=== PATIENT | male | born 1935 | race Caucasian/White ===

== ENCOUNTER 2017-09-01 11:38 | Emergency (ER) | payer MEDICARE, OTHER ==
[~2017-09-01] VITALS: Ht 182.9 cm; Wt 83.8 kg
[~2017-09-01 11:38] MED LIST: ADVAIR DISK1 INH; ASPIRIN LOW DOS81 M2 PO; BENZONATATE200 MG PO; CLARITIN10 M1 PO; DETROL LA4 MG PO; DOXYCYC MONO100 M1 PO; DOXYCYCL HYC100 MG PO; FIBER CON625 MG PO; FISH OIL1000 MG PO; FLEXERIL5 MG PO; FLONASE NASAL50 MCG; GABAPENTIN100 MG PO; GLUCOSAMINE500 M4; HYDROCHLOROT25 MG PO; LEVAQUIN750 MG PO; Levaquin PO; MECLIZINE12.5 M1 PO; MUCINEX600 MG PO; MULTIVITAMIN PO; PRAVASTATIN SOD20 MG PO; PREDNISONE20 MG PO; PRILOSEC20 MG/CAP PO; RAPAFLO8 MG PO; SINGULAIR PO; TESSALON PER100 MG PO; TYLENOL 500MG TAB PO; ZITHROMAX250 MG PO; [UNRECOGNIZED DRUG - OTHER] PO
[2017-09-01 13:20] LABS: HEMATOCRIT 34.8 % (39.0-50.0); HEMOGLOBIN 11.8 g/dl (14.0-18.0); IMMATURE GRANULOCYTES 4.1 % (0.0-1.0); MEAN CELL VOLUME 95.3 fL CALC (80.0-100.0); MEAN CORPUSCULAR HGB 32.3 pG CALC (26.0-32.0); MEAN CORPUSCULAR HGB CONC 33.9 g/L CALC (32.0-36.0); NEUT# 16.35 thou/uL (1.82-7.42); RED BLOOD COUNT 3.65 mill/uL (4.70-6.10); RED CELL DISTRI WIDTH 13.2 % (11.5-15.5)
[2017-09-01 13:29] LABS: ALBUMIN 4.2 g/dL (3.2-5.0); ALKALINE PHOSPHATASE 165 u/l (38-126); ANION GAP 16 (6-22 (CALC)); BILIRUBIN, TOTAL 0.4 mg/dL (0.0-1.4); BUN 17 mg/dL (8-23); BUN/CREATININE RATIO 22 (12-20 (CALC)); CALCIUM 9.7 mg/dL (8.4-10.2); CARBON DIOXIDE 23 mmol/l (22-30); CHLORIDE 100 mmol/l (95-108); CREATININE 0.8 mg/dL (0.7-1.3); GFR > 60 ML/MIN (>=60 (CALC)); GFR FOR AFR.AMER. > 60 ML/MIN (>=60 (CALC)); GLUCOSE 91 mg/dL (82-115); POTASSIUM 4.5 mmol/l (3.5-5.1); SGOT/AST 32 u/l (19-48); SGPT/ALT 38 u/l (11-66); SODIUM 135 mmol/l (137-146); TOTAL PROTEIN 7.8 g/dL (6.3-8.2)
[2017-09-01 13:37] LABS: MYOGLOBIN 57 ng/mL (0 - 121)
[2017-09-01 14:56] LABS: URINE BILIRUBIN - DIPSTICK NEGATIVE (NEGATIVE); URINE BLOOD DIPSTICK NEGATIVE (NEGATIVE); URINE COLOR YELLOW; URINE GLUCOSE - DIPSTICK NEGATIVE (NEGATIVE); URINE KETONE NEGATIVE (NEGATIVE); URINE LEUK ESTERASE NEGATIVE (NEGATIVE); URINE NITRITE - DIPSTICK NEGATIVE (Negative); URINE PROTEIN - DIPSTICK NEGATIVE (NEG-TRACE); URINE SPECIFIC GRAVITY <=1.005; URINE UROBILINOGEN - DIPSTICK 0.2 E.U./dL (0.2)
[2017-09-01 14:58] LABS: URINE CLARITY CLEAR
[2017-09-01 16:09] VITALS: BP 119/68
== END 2017-09-01 16:09 | disposition home or self-care (01) ==
LOC: ED 11:38
PROVIDERS: Emergency Medicine
DX: R10.9 Unspecified abdominal pain (principal); D72.829 Elevated white blood cell count, unspecified; C83.00 Small cell B-cell lymphoma, unspecified site; Z79.899 Other long term (current) drug therapy

== ENCOUNTER 2019-07-23 09:51 | Observation (INO) | payer MEDICARE, OTHER ==
[~2019-07-23] VITALS: Ht 185.4 cm; Wt 84.6 kg
--- NOTE | 2019-07-23 09:51 | NUR ---
PT AMBULATED TO ROOM ,DECLINED WC, STATES LT SIDED CP RESOLVED AT THIS TIME
--- NOTE | 2019-07-23 10:00 | NUR ---
PT DENIES ANY CP AT THIS TIME; DR SYED AT BEDSIDE FOR ASSESSMENT; EKG COMPLETED; IV INITIATED AND LABS DRAWN; AT BEDSIDE; VSS; MONITORING DEVICES APPLIED; WILL CONTINUE TO MONITOR
[2019-07-23] MEDS ORDERED: COMBIVENT RESPIMAT IN (10:16)
[2019-07-23] MEDS ORDERED: TESSALON PER100 MG PO (10:16)
[2019-07-23] MEDS ORDERED: SIMILASAN (10:17)
[2019-07-23] MEDS ORDERED: FLOVENT DI50 MCG/BLI (10:17)
[2019-07-23] MEDS ORDERED: ALFUZOSIN HCL E10 MG PO (10:18)
[2019-07-23 10:19] LABS: HEMATOCRIT 36.2 % (39.0-50.0); HEMOGLOBIN 12.4 g/dl (14.0-18.0); IMMATURE GRANULOCYTES 0.8 % (0.0-5.0); MEAN CELL VOLUME 91.2 fL CALC (80.0-100.0); MEAN CORPUSCULAR HGB 31.2 pG CALC (26.0-32.0); MEAN CORPUSCULAR HGB CONC 34.3 g/L CALC (32.0-36.0); NEUT# 4.66 thou/uL (1.82-7.42); RED BLOOD COUNT 3.97 mill/uL (4.70-6.10); RED CELL DISTRI WIDTH 11.9 % (11.5-15.5)
[2019-07-23] MEDS ORDERED: OMEPRAZOLE DR40 MG PO (10:19)
[2019-07-23] MEDS ORDERED: COQ10100 MG PO (10:19)
[2019-07-23 10:24] LABS: ANION GAP 15 (6-22 (CALC)); BUN 16 mg/dL (8-23); BUN/CREATININE RATIO 23 (12-20 (CALC)); CARBON DIOXIDE 24 mmol/l (22-30); CHLORIDE 98 mmol/l (95-108); CREATININE 0.7 mg/dL (0.7-1.3); GFR > 60 ML/MIN (>=60 (CALC)); GFR FOR AFR.AMER. > 60 ML/MIN (>=60 (CALC)); POTASSIUM 4.4 mmol/l (3.5-5.1); SODIUM 133 mmol/l (137-146)
--- NOTE | 2019-07-23 10:55 | NUR ---
PT RESTING ON STRETCHER; NO S/S OF DISTRESS NOTED; PT DENIES ANY CP, DIZZINESS OR PAIN; MONITORING DEVICES IN PLACE; SPOUSE AT BEDSIDE; CALL LIGHT WITHIN REACH; WILL CONTINUE TO MONITOR
--- NOTE | 2019-07-23 11:50 | NUR ---
PT ASSISTED TO BR AT THIS TIME; AMB WITH STEADY GAIT; VSS; WILL CONTINUE TO MONITOR
--- NOTE | 2019-07-23 12:33 | NUR ---
REPORT CALLED TO ENEIDA REBOLLEDO
--- NOTE | 2019-07-23 12:36 | NUR ---
PT ARRIVED TO MED/SURG ROOM 281 IN STABLE CONDITION VIA WHEELCHAIR ACCOMPANIED BY LENNIE QUINONES AND SPOUSE;PT AMBULATED WITH A STEADY GAIT TO STANDING SCALE AND BEDSIDE;WT AND VS OBTAINED BY ANDER BOUDREAUX;PT A&O X3,ORIENTED TO ROOM AND CALL LIGHT SYSTEM;PT REPORTS X2 EPISODES OF CHEST PRESSURE ACCOMPANIED BY DIZZINESS YESTERDAY 07/22/19 AND THIS MORNING 07/23/19;PT DENIES ANY CURRENT PAIN OR DISCOMFORTS,PAIN SCALE AND REPORTING EDUCATED;ASSESSMENT COMPLETED;RESPIRATIONS EVEN AND UNLABORED ON RA,CLEAR LUNG SOUNDS;ABDOMEN SOFT ON PALPATION AND ACTIVE IN ALL 4 QUADRANTS,LAST BM 07/22/19;STRONG PEDAL PULSES;SKIN INTACT;TELE MONITORING IN PLACE;#20G TO LAC FLUSHED AND PATENT,SITE APPEARS HEALTHY;PT DENIES ANY ADDITIONAL NEEDS AND IS ENCOURAGED TO CALL FOR ASSISTANCE IF NEEDED;FALL PRECAUTIONS IN PLACE WITH BED IN THE LOWEST POSITION AND CALL LIGHT IN REACH;WILL CONTINUE TO MONITOR
--- NOTE | 2019-07-23 12:40 | NUR ---
Admission Note Report Given to: ENEIDA REBOLLEDO Transported by: X Wheelchair Stretcher Transported with: X Nurse Transporter X Patent IV O2 Transmission Builder
[2019-07-23 12:54] VITALS: BP 131/78
[2019-07-23] MEDS ORDERED: LACTAID FAS9000 UNIT PO (13:17)
--- NOTE | 2019-07-23 15:20 | NUR ---
PT RESTING IN SEMI FOWLERS POSITION READING A BOOK;RESPIRATIONS EVEN AND UNLABORED ON RA;PT DENIES ANY CURRENT PAIN OR DISCOMFORTS;TELE MONITORING IN PLACE;PT DENIES ANY CURRENT NEEDS AND IS ENCOURAGED TO CALL FOR ASSISTANCE IF NEEDED;CALL LIGHT IN REACH;WILL CONTINUE TO MONITOR
[2019-07-23 15:31] VITALS: BP 126/79
--- NOTE | 2019-07-24 04:58 | NUR ---
PATIENT ASSISTED TO THE BATHROOM, REMAINS ON A STANDBY ASSIST, ASSISTED BACK IN BED, DENIES PAIN OR DISCOMFORTS CALL LIGHT AT REACH
[2019-07-24 05:05] VITALS: BP 109/70
[2019-07-24 05:20] LABS: CHOLESTEROL HDL RATIO 2.8 (<4.4 (CALC))
--- NOTE | 2019-07-24 08:00 | NUR ---
PT IS SITTING IN THE SIDE OF THE BED. ASSESSMENT DONE. RESPS EVEN AND UNLABORED. PT IS A&O X3. PT DENIES ANY PAIN AT THIS TIME. CALL LIGHT IN REACH.
[2019-07-24 08:07] VITALS: BP 105/71
[2019-07-24 10:38] VITALS: BP 138/82
--- NOTE | 2019-07-24 12:00 | NUR ---
PT IS EATING HIS LUNCH WITH NO S/S OF DISTRESS NOTED. IN ROOM. CALL LIGHT IN REACH.
--- NOTE | 2019-07-24 14:28 | NUR ---
Discharge instructions given. Patient verbalizes understanding of same. Discharged in stable condition via Wheelchair to Home with volunteer. All belongings sent with pt.
== END 2019-07-24 14:26 | disposition home or self-care (01) ==
LOC: ED 09:51 → ED-I 11:05 → ED 11:19 → MS2 11:20
PROVIDERS: Family Medicine; ADMIT Internal Medicine; ATTEND Internal Medicine
DX: I20.0 Unstable angina (principal); R55 Syncope and collapse; G80.9 Cerebral palsy, unspecified; C91.11 Chronic lymphocytic leukemia of B-cell type in remission; Z92.21 Personal history of antineoplastic chemotherapy
CPT/HCPCS: G0378

== ENCOUNTER 2020-09-23 16:31 | Inpatient (IN) | payer MEDICARE, OTHER ==
[~2020-09-23] VITALS: Ht 182.9 cm; Wt 83.1 kg
[~2020-09-23 16:31] MED LIST changes: +ALFUZOSIN HCL E10 MG PO; +ALL DAY10 MG PO; -CLARITIN10 M1 PO; +COMBIVENT RESPIMAT IN; +COQ10100 MG PO; +FLOVENT DI50 MCG/BLI; -GLUCOSAMINE500 M4; +GLUCOSAMINE500 M4 PO; +LACTAID FAS9000 UNIT PO; +OMEPRAZOLE DR40 MG PO; +SIMILASAN; -TYLENOL 500MG TAB PO; +TYLENOL500 MG PO
[2020-09-23 16:50] VITALS: BP 116/72
[2020-09-23 18:44] VITALS: BP 110/70
[2020-09-23] MEDS ORDERED: IBUPROFEN200 MG PO (18:58)
[2020-09-23] MEDS ORDERED: TYLENOL EXTRA STRENG PO (18:59)
[2020-09-23] MEDS ORDERED: ADVAIR DISKU IN (19:01)
[2020-09-24 04:44] VITALS: BP 120/68
[2020-09-24 06:12] LABS: HEMATOCRIT 33.9 % (39.0-50.0); HEMOGLOBIN 11.1 g/dl (14.0-18.0); MEAN CELL VOLUME 90.4 fL CALC (80.0-100.0); MEAN CORPUSCULAR HGB 29.6 pG CALC (26.0-32.0); MEAN CORPUSCULAR HGB CONC 32.7 g/dL CAL (32.0-36.0); RED BLOOD COUNT 3.75 mill/uL (4.70-6.10); RED CELL DISTRI WIDTH 13.5 % (11.5-15.5)
[2020-09-24 06:46] LABS: ALBUMIN 2.8 g/dL (3.2-5.0); ALKALINE PHOSPHATASE 114 u/l (38-126); ANION GAP 10 (6-22 (CALC)); BILIRUBIN, TOTAL 0.7 mg/dL (0.0-1.4); BUN 12 mg/dL (8-23); BUN/CREATININE RATIO 20 (12-20 (CALC)); CARBON DIOXIDE 24 mmol/l (22-30); CHLORIDE 99 mmol/l (95-108); CREATININE 0.6 mg/dL (0.7-1.3); GFR > 60 ML/MIN (>=60 (CALC)); GFR FOR AFR.AMER. > 60 ML/MIN (>=60 (CALC)); MAGNESIUM 1.8 mg/dL (1.6-2.3); POTASSIUM 4.5 mmol/l (3.5-5.1); SGOT/AST 13 u/l (19-48); SODIUM 128 mmol/l (137-146); TOTAL PROTEIN 4.8 g/dL (6.3-8.2)
[2020-09-24 07:23] VITALS: BP 120/72
[2020-09-24] MEDS ORDERED: ALFUZOSIN HCL E10 MG PO (14:28)
[2020-09-24] MEDS ORDERED: [UNRECOGNIZED DRUG - OTHER] PO (14:29)
[2020-09-24] MEDS ORDERED: CO Q 10100 MG PO (14:30)
[2020-09-24] MEDS ORDERED: FLOVENT DI100 MCG/BL PO (14:34)
[2020-09-24 14:55] VITALS: BP 101/52
[2020-09-24 19:10] VITALS: BP 104/71
[2020-09-25 05:16] VITALS: BP 114/66
[2020-09-25 07:12] LABS: HEMATOCRIT 33.5 % (39.0-50.0); HEMOGLOBIN 11.2 g/dl (14.0-18.0); MEAN CELL VOLUME 89.8 fL CALC (80.0-100.0); MEAN CORPUSCULAR HGB CONC 33.4 g/dL CAL (32.0-36.0); RED BLOOD COUNT 3.73 mill/uL (4.70-6.10); RED CELL DISTRI WIDTH 13.6 % (11.5-15.5)
[2020-09-25 07:48] LABS: ANION GAP 12 (6-22 (CALC)); BUN 12 mg/dL (8-23); BUN/CREATININE RATIO 18 (12-20 (CALC)); CARBON DIOXIDE 22 mmol/l (22-30); CHLORIDE 99 mmol/l (95-108); CREATININE 0.7 mg/dL (0.7-1.3); GFR > 60 ML/MIN (>=60 (CALC)); GFR FOR AFR.AMER. > 60 ML/MIN (>=60 (CALC)); MAGNESIUM 1.6 mg/dL (1.6-2.3); POTASSIUM 4.6 mmol/l (3.5-5.1); SODIUM 127 mmol/l (137-146)
[2020-09-25 08:27] VITALS: BP 112/64
[2020-09-25 15:00] VITALS: BP 129/59
[2020-09-25 20:35] VITALS: BP 107/74
[2020-09-26 03:55] VITALS: BP 123/72
[2020-09-26 08:50] VITALS: BP 105/71
[2020-09-26 16:14] VITALS: BP 105/69
[2020-09-26 20:03] VITALS: BP 116/74
[2020-09-27 04:08] VITALS: BP 97/60
[2020-09-27 05:22] LABS: HEMATOCRIT 34.2 % (39.0-50.0); HEMOGLOBIN 11.4 g/dl (14.0-18.0); MEAN CORPUSCULAR HGB CONC 33.3 g/dL CAL (32.0-36.0); NEUT# 14.37 thou/uL (1.82-7.42); RED BLOOD COUNT 3.8 mill/uL (4.70-6.10); RED CELL DISTRI WIDTH 13.6 % (11.5-15.5)
[2020-09-27 05:35] LABS: IMMATURE GRANULOCYTES 9.3 % (0.0-5.0)
[2020-09-27 05:37] LABS: ANION GAP 9 (6-22 (CALC)); BUN 12 mg/dL (8-23); BUN/CREATININE RATIO 17 (12-20 (CALC)); CARBON DIOXIDE 23 mmol/l (22-30); CHLORIDE 100 mmol/l (95-108); CREATININE 0.7 mg/dL (0.7-1.3); GFR > 60 ML/MIN (>=60 (CALC)); GFR FOR AFR.AMER. > 60 ML/MIN (>=60 (CALC)); POTASSIUM 4.1 mmol/l (3.5-5.1); SODIUM 127 mmol/l (137-146)
[2020-09-27 08:42] VITALS: BP 110/81
[2020-09-27] MEDS ORDERED: FLORASTOR250 M1 PO (11:23)
[2020-09-27] MEDS ORDERED: VANTIN200 M1 PO (11:49)
[2020-09-27] MEDS ORDERED: DOXYCYCL HYC100 MG PO (11:49)
== END 2020-09-27 14:07 | disposition home or self-care (01) | DRG 191 ==
LOC: MS2 16:31
PROVIDERS: Nurse Practitioner; ADMIT Internal Medicine; ATTEND Internal Medicine
DX: J47.0 Bronchiectasis with acute lower respiratory infection (principal); E87.1 Hypo-osmolality and hyponatremia; C83.00 Small cell B-cell lymphoma, unspecified site; J18.9 Pneumonia, unspecified organism; J47.1 Bronchiectasis with (acute) exacerbation; R09.02 Hypoxemia; G80.9 Cerebral palsy, unspecified; K21.9 Gastro-esophageal reflux disease without esophagitis; D64.9 Anemia, unspecified; Z87.01 Personal history of pneumonia (recurrent); Z20.822 Contact with and (suspected) exposure to COVID-19
CPT/HCPCS: G0378; G0379; J0692; Q9967

== ENCOUNTER 2024-09-05 09:29 | Observation (INO) | payer MEDICARE ==
[~2024-09-05] VITALS: Ht 182.9 cm; Wt 83.6 kg
[2024-09-05] VITALS (16 sets, daily range): BP systolic 104–142; BP diastolic 51–87
[~2024-09-05 09:29] MED LIST changes: +ADVAIR DISKU IN; +ASPIRIN81 MG PO; +CLARITIN-D1 TA2 PO; +CO Q 10100 MG PO; +EYE DROP3 OP; +FLORASTOR250 M1 PO; +FLOVENT DI100 MCG/BL PO; +IBUPROFEN200 MG PO; +MOXIFLOXACIN H400 MG PO; +SILODOSIN4 MG; +TYLENOL EXTRA STRENG PO; +VANTIN200 M1 PO; +[UNRECOGNIZED DRUG - OTHER] PO
--- NOTE | 2024-09-05 09:42 | NUR ---
PT ARRIVED VIA EMS-REPORT RECEIVED.
[2024-09-05 10:15] LABS: BASO% 0.6 % (0-3); HEMOGLOBIN 11.2 g/dl (14.0-18.0); IMMATURE GRANULOCYTES 0.3 % (0.0-5.0); LYMPH% 5.4 % (15-41); MEAN CELL VOLUME 96.3 fL CALC (80.0-100.0); MEAN CORPUSCULAR HGB 31.7 pG CALC (26.0-32.0); MEAN CORPUSCULAR HGB CONC 32.9 g/dL CAL (32.0-36.0); MONO% 12.6 % (2-13); NEUT# 5.14 thou/uL (1.82-7.42); NEUT% 81.1 % (42-76); RED BLOOD COUNT 3.53 mill/uL (4.70-6.10); RED CELL DISTRI WIDTH 12.8 % (11.5-15.5)
[2024-09-05 10:23] LABS: ALBUMIN 3.9 g/dL (3.2-5.0); BILIRUBIN, TOTAL 0.6 mg/dL (0.2-1.3); CREATININE 0.7 mg/dL (0.7-1.3); POTASSIUM 3.9 mmol/l (3.5-5.1); TOTAL PROTEIN 6.3 g/dL (6.3-8.2)
[2024-09-05] MEDS ORDERED: AZITHROMYCIN 500 MG in SODIUM CHLORIDE 0.9% 500 ML IV ONE (11:20)
[2024-09-05] MEDS ORDERED: cefTRIAXone SODIUM 2 GM in SODIUM CHLORIDE 0.9% 100 ML IV ONE (11:20)
[2024-09-05] MEDS ORDERED: OSELTAMIVIR PHOSPHATE 75 MG/TAB CAP PO ONE (11:20)
[2024-09-05] MEDS ORDERED: MAGNESIUM HYDROXIDE 30 ML UDC PO PRN (11:55)
[2024-09-05] MEDS ORDERED: ACETAMINOPHEN 325 MG/TAB PO PRN (11:55)
[2024-09-05] MEDS ORDERED: ALBUTEROL SULFATE 8 GM INH IN PRN (12:00)
[2024-09-05] MEDS ORDERED: PANTOPRAZOLE SODIUM Sesquihydr 40 MG/TAB PO SCH (14:00)
--- NOTE | 2024-09-05 15:41 | NUR ---
report given to Amy RN ext [phone] for MS Room 269
--- NOTE | 2024-09-05 16:00 | NUR ---
PT ARRIVED TO UNIT VIA WHEELCHAIR TRANSPORT, PT FEELING WEAK AT THIS TIME, STAND. IS AOX3, RESPIRATIONS ARE LABORED WITH ACTIVITY, RONCHI NOTED THROUGHOUT LUNGS, BOWEL SOUNDS ACTIVE, PEDAL PULSES PALPABLE TO TOUCH, RIGHT FOOT/ANKLE WITH 2+ PITTING EDEMA.
--- NOTE | 2024-09-05 20:00 | NUR ---
RECEIVED REPORT FROM DAYSHIFT NURSE. PT NOTED SITTING UP IN BED FOLWERS, RM AIR. PT IS A/OX3, DENIES ANY N/V/P AT THIS TIME. NURSING ASSESSMENT COMPLETED, LUNG SOUNDS RHONCHI THROUGHOUT. IV SITE APPEARS HEALTHY AND INTACT, FLUSHES W/O DIFFICULTY. PT IS VERY WEAK AT THIS TIME AND HAS HAD SOME EPISODES OF INC. PUREWICK WAS RECOMMENDED TO PT WHICH HE AGREED UPON AND WAS APPLIED. EDUCATED PT ON PLAN OF CARE AND MED SCHEDULE. VSS. NO S/S OF DISTRESS. CALL LIGHT WITHIN REACH AND SAFETY PRECAUTIONS IN PLACE.
[2024-09-05] MEDS ORDERED: OSELTAMIVIR PHOSPHATE 75 MG/TAB CAP PO SCH (21:00)
[2024-09-06] VITALS (7 sets, daily range): BP systolic 109–150; BP diastolic 60–83
--- NOTE | 2024-09-06 00:20 | NUR ---
PT HAD TWO EPISODES OF VOMITTING, C/O NAUSEA AND STATING "IM GOING THROUGH A VERTIGO EPISODE" PT STATES HE HAS A HX OF VERTIGO BUT DOES NOT TAKE ANYTHING FOR IT AT HOME. CHARLOTTE CAREY WAS INFORMED OF PT STATUS, TORB FOR ZOFRAN WAS FAXED TO [facility] AWAITING VERIFICATION. PT WAS CLEANED UP AND SITTING UP FOWLERS IN BED. VSS. CALL LIGHT WITHIN REACH AND SAFETY PRECAUTIONS IN PLACE.
[2024-09-06] MEDS ORDERED: ONDANSETRON HCl 4 MG/2 ML SDV IV PRN (00:40)
--- NOTE | 2024-09-06 05:17 | NUR ---
COMBINE OPERATOR WAS OBTAINING PT MORNING VITALS, PT O2 SATURATION AT THE TIME WAS READING 73% ON RM AIR. WHEN COMMUNITY LIVING INSTRUCTOR ENTERED ROOM, AUDIBLE RATTLING/CRACKLING BREATH SOUNDS NOTED. PLACED PT ON NON REBREATHER @15L 02. ADMINSITERED TWO PUFFS OF INHALER PER EMAR AND REPOSITIONED PT TO HIGH FOWLERS POSITION. RT WAS NOTIFIED AND DID COME ASSESS PT. PT DENIED FEELING SOB, WAS A/OX3, AND ABLE TO HOLD CONVERSATION. PT DID EXPRESS FEELING VERY WEAK, DID REQUIRE X2 ASSIST TO REPOSITION IN THE BED.
[2024-09-06] MEDS ORDERED: FUROSEMIDE 40 MG/4 ML SDV IV SCH (06:00)
--- NOTE | 2024-09-06 06:08 | NUR ---
GENETIC SCIENTIST LOBO CAREY WAS INFORMED PT CHANGE IN STATUS. CHEST XRAY COMPLETED AND LASIX WAS ADMINSITERED PER EMAR. PT SITTING UP HIGH FOWLERS IN BED WITH NON REBREATHER ON 15L 02. CALL LIGHT WITHIN REACH AND SAFETY PRECAUTIONS IN PLACE. TELE MONITOR IN PLACE.
[2024-09-06 06:12] LABS: BASO% 0.2 % (0-3); HEMATOCRIT 35.1 % (39.0-50.0); HEMOGLOBIN 11.7 g/dl (14.0-18.0); IMMATURE GRANULOCYTES 0.2 % (0.0-5.0); LYMPH% 2.1 % (15-41); MEAN CELL VOLUME 94.6 fL CALC (80.0-100.0); MEAN CORPUSCULAR HGB 31.5 pG CALC (26.0-32.0); MEAN CORPUSCULAR HGB CONC 33.3 g/dL CAL (32.0-36.0); MONO% 6.1 % (2-13); NEUT# 12.09 thou/uL (1.82-7.42); NEUT% 91.4 % (42-76); RED BLOOD COUNT 3.71 mill/uL (4.70-6.10); RED CELL DISTRI WIDTH 12.6 % (11.5-15.5)
[2024-09-06 06:35] LABS: ALBUMIN 3.4 g/dL (3.2-5.0); BILIRUBIN, TOTAL 0.7 mg/dL (0.2-1.3); CREATININE 0.7 mg/dL (0.7-1.3); MAGNESIUM 1.7 mg/dL (1.6-2.3); POTASSIUM 3.7 mmol/l (3.5-5.1); TOTAL PROTEIN 5.8 g/dL (6.3-8.2)
[2024-09-06] MEDS ORDERED: ASPIRIN 81 MG/TAB PO SCH (09:00)
[2024-09-06] MEDS ORDERED: AZITHROMYCIN 500 MG in SODIUM CHLORIDE 0.9% 250 ML IV SCH (13:00)
--- NOTE | 2024-09-06 17:06 | NUR ---
PT EDUCATED ON ACAPELLA/PEP THERAPY & INCENTIVE SPIROMETRY USE. GREAT EFFORT GIVEN. PT INSTRUCTED TO CONTINUE ON WITH BOTH 10X Q1 WHILE AWAKE.
--- NOTE | 2024-09-06 18:51 | NUR ---
Patient was weaned from Non rebreather on 15L to N/C on 2-3L/ Tolerating well. Up to chair today and tolerated well. X1 low grade fever, administered Tylenol with good effect.
[2024-09-07] VITALS (9 sets, daily range): BP systolic 128–147; BP diastolic 69–82
--- NOTE | 2024-09-07 03:44 | NUR ---
PATIENT ASLEEP IN BED AT THIS TIME. RESPIRATIONS EVEN AND UNLABORED ON OXYGEN @ 3 LPM VIA NC. PATIENT HAS SOME SOB ON EXERTION. NO SIGNS OF DISTRESS NOTED. SAFETY MEASURES IN PLACE.
[2024-09-07 05:32] LABS: BASO% 0.3 % (0-3); EOS% 0.1 % (0-8); HEMATOCRIT 34.7 % (39.0-50.0); HEMOGLOBIN 11.8 g/dl (14.0-18.0); IMMATURE GRANULOCYTES 0.2 % (0.0-5.0); MEAN CELL VOLUME 95.9 fL CALC (80.0-100.0); MEAN CORPUSCULAR HGB 32.6 pG CALC (26.0-32.0); MONO% 10.5 % (2-13); NEUT# 8.01 thou/uL (1.82-7.42); NEUT% 81.9 % (42-76); RED BLOOD COUNT 3.62 mill/uL (4.70-6.10); RED CELL DISTRI WIDTH 12.9 % (11.5-15.5)
[2024-09-07 05:33] LABS: ALBUMIN 3.2 g/dL (3.2-5.0); BILIRUBIN, TOTAL 0.6 mg/dL (0.2-1.3); CREATININE 0.7 mg/dL (0.7-1.3); MAGNESIUM 1.8 mg/dL (1.6-2.3); POTASSIUM 3.5 mmol/l (3.5-5.1); TOTAL PROTEIN 5.5 g/dL (6.3-8.2)
--- NOTE | 2024-09-07 07:38 | NUR ---
PATINET LYING IN BED WITH EYES CLOSED RESTING. BREATHING UNLABORED ON 3L NC. TELE INTACT. IV SL;SITE CLEAN AND INTACT. URINAL AT BEDSIDE. NO SIGNS OF DISTRESS OR PAIN NOTED. BED IN LOWEST POSITION. PERSONAL ITEMS WELL CALL LIGHT WITHIN REACH. NO NEEDS AT THIS TIME. POC ONGOING.
--- NOTE | 2024-09-07 12:47 | NUR ---
PATIENT SITTING UP ON SIDE OF BED EATING LUNCH. BREATHING UNLABORED ON ROOM AIR. TELE INTACT. IV IN LFA INFUSING FLUIDS PER EMAR;SITE CLEAN AND INTACT. PT DENIES ANY PAIN OR N/D/V AT THIS TIME. BED IN LOWEST POSITION. PERSONAL ITEMS WELL CALL LIGHT WITHIN REACH;PT VERBALIZED UNDERSTANDING OF USE. NO OTHER NEEDS AT THIS TIME. POC ONGOING.
--- NOTE | 2024-09-07 16:09 | NUR ---
PATIENT LYING IN BED AWAKE. AT BEDSIDE. BREATHING UNLABORED ON ROOM AIR. TELE INTACT. IV IN LFA SL;SITE CLEAN AND INTACT. PT DENIES ANY PAIN OR N/D/V AT THIS TIME. BED IN LOWEST POSITION. PERSONAL ITEMS WELL CALL LIGHT WITHIN REACH. NO OTHER NEEDS AT THIS TIME.POC ONGOING.
[2024-09-08] VITALS (9 sets, daily range): BP systolic 95–155; BP diastolic 38–93
--- NOTE | 2024-09-08 07:34 | NUR ---
PT IS AOX4, RESPIRATIONS ARE EVEN AND UNLABORED, LUNGS SOUND COURSE AT THE LEFT LOWER LOBE, CLEAR AT THE RIGHT LOWER LOBE, SLIGHTLY COURSE AT LEFT UPPER LOBE, CLEAR AT RIGHT UPPER LOBE, BOWEL SOUNDS ARE ACTIVE, PEDAL PULSES ARE PALPABLE TO TOUCH, PT DENIES PAIN AT THIS TIME.
--- NOTE | 2024-09-08 12:03 | NUR ---
PT'S IV FOUND DISLODGED, NO BLEEDING, NO SWELLING NOTED.
--- NOTE | 2024-09-08 12:30 | NUR ---
ATEMPTED TO REPLACE PT'S IV BUT WAS NOT SUCCESSFUL, MESSAGE SENT TO DUMPER FOR ASSISTANCE.
--- NOTE | 2024-09-08 16:12 | NUR ---
PT SITTING UP IN BED VISITING WITH FAMILY, RESPIRATIONS ARE EVEN AND UNLABORED ON 2L, PT DENIES PAIN AT THIS TIME.
[2024-09-08] MEDS ORDERED: ENOXAPARIN SODIUM 40 MG/0.4 ML SYR SC SCH (21:00)
[2024-09-09 03:50] VITALS: BP 145/76
[2024-09-09 05:09] LABS: HEMATOCRIT 32.1 % (39.0-50.0); MEAN CELL VOLUME 93.9 fL CALC (80.0-100.0); MEAN CORPUSCULAR HGB 32.2 pG CALC (26.0-32.0); MEAN CORPUSCULAR HGB CONC 34.3 g/dL CAL (32.0-36.0); RED BLOOD COUNT 3.42 mill/uL (4.70-6.10); RED CELL DISTRI WIDTH 12.5 % (11.5-15.5)
[2024-09-09 05:27] LABS: ALBUMIN 3.4 g/dL (3.2-5.0); CREATININE 0.6 mg/dL (0.7-1.3); POTASSIUM 3.4 mmol/l (3.5-5.1)
[2024-09-09 05:37] LABS: BILIRUBIN, TOTAL 1.1 mg/dL (0.2-1.3)
--- NOTE | 2024-09-09 07:00 | NUR ---
REPORT RECEIVED FROM ZULY. PT SEEN RESTING IN BED WITHOUT COMPLAINTS. CHEERFUL. LUNGS COARSE ON EXPIRATION. PT DENIES SOB. PO2 95% ON R/A. CALL LIGHT IN REACH. WILL MONITOR.
[2024-09-09 07:27] VITALS: BP 142/77
[2024-09-09 11:50] VITALS: BP 136/89
[2024-09-09] MEDS ORDERED: AZITHROMYCIN 250 MG/TAB PO SCH (13:00)
[2024-09-09 14:48] VITALS: BP 126/76
[2024-09-09 15:25] VITALS: BP 126/76
--- NOTE | 2024-09-09 18:31 | NUR ---
PT RESTED ON AND OFF THROUGHOUT SHIFT. VISITED AT BEDSIDE TONIGHT. PT AMBULATED TO BR TO VOID AND MOVE BM. PT JANINA FOOD INTAKE AND IV ABX. MAINTAIN PO2 ON R/A 95%. DENIES SOB/DYSPNEA. HOPING TO GO HOME TOMORROW. CALL LIGHT MAINTAINED IN REACH.
[2024-09-09 18:41] VITALS: BP 143/74
[2024-09-10 05:30] VITALS: BP 142/83
[2024-09-10 05:36] LABS: BASO% 0.6 % (0-3); EOS% 1.9 % (0-8); HEMATOCRIT 34.6 % (39.0-50.0); HEMOGLOBIN 11.6 g/dl (14.0-18.0); IMMATURE GRANULOCYTES 0.6 % (0.0-5.0); LYMPH% 19.4 % (15-41); MEAN CORPUSCULAR HGB 31.5 pG CALC (26.0-32.0); MEAN CORPUSCULAR HGB CONC 33.5 g/dL CAL (32.0-36.0); MONO% 14.5 % (2-13); NEUT# 2.94 thou/uL (1.82-7.42); RED BLOOD COUNT 3.68 mill/uL (4.70-6.10); RED CELL DISTRI WIDTH 12.5 % (11.5-15.5)
[2024-09-10 06:04] LABS: ALBUMIN 3.3 g/dL (3.2-5.0); CREATININE 0.7 mg/dL (0.7-1.3); MAGNESIUM 1.7 mg/dL (1.6-2.3); POTASSIUM 3.8 mmol/l (3.5-5.1); TOTAL PROTEIN 5.6 g/dL (6.3-8.2)
[2024-09-10 07:24] VITALS: BP 153/91
--- NOTE | 2024-09-10 07:32 | NUR ---
PT IS AOX4, RESPIRATIONS ARE EVEN AND UNLABORED ON ROOM AIR, LUNGS SOUND CLEAR THROUGHOUT, BOWEL SOUNDS ARE ACTIVE, PEDAL PULSES ARE STRONG, PT DENIES PAIN AT THIS TIME.
[2024-09-10 10:46] VITALS: BP 137/66
[2024-09-10] MEDS ORDERED: DOXYCYCLINE100 MG PO (11:25)
--- NOTE | 2024-09-10 11:42 | NUR ---
PT SITTING UP IN BED IN NO ACUTE DISTRESS AT THIS TIME.
--- NOTE | 2024-09-10 13:43 | NUR ---
REVIEWED DISCHARGE INSTRUCTIONS WITH PT AND , REMOVED IV, REMOVED TELE.
== END 2024-09-10 13:58 ==
LOC: ED 09:29 → ED-I 11:07 → ED 11:22 → MS2 11:23
PROVIDERS: Family Medicine; Nurse Practitioner Family; ADMIT Internal Medicine; ATTEND Internal Medicine
DX: U07.1 COVID-19 (principal); J12.82 Pneumonia due to coronavirus disease 2019; J11.00 Influenza due to unidentified influenza virus with unspecified type of pneumonia; J44.0 Chronic obstructive pulmonary disease with (acute) lower respiratory infection; I50.9 Heart failure, unspecified; D64.9 Anemia, unspecified; C83.00 Small cell B-cell lymphoma, unspecified site; G80.9 Cerebral palsy, unspecified; K21.9 Gastro-esophageal reflux disease without esophagitis
CPT/HCPCS: J0456; J0696; J1650; J1940; J2405